=== PATIENT | male | born 1990 | race Caucasian/White ===

== ENCOUNTER 2019-11-28 15:43 | Emergency (ER) | payer OTHER, SELFPAY ==
[2019-11-28 16:06] VITALS: BP 133/84; PULSE 78; RESP 20; TEMP 36.6; O2SAT 100
--- NOTE | 2019-11-28 16:16 | ED.GENADULT ---
HPI - General Adult General Chief complaint: Extremity Injury, Lower Stated complaint: l/foot injury Time Seen by Provider: 11/28/19 16:16 Source: patient Mode of arrival: ambulatory Limitations: no limitations History of Present Illness HPI narrative: 29-year-old male patient presents to the [facility] with complaints of left great toe wound and pain. Patient states he has had the symptoms for approximately 2 weeks now. Patient states that he has been trying to soak his toe and on does show an warm water. Patient states that he noticed some yellow discharge coming from it yesterday. Patient states it seems to be getting worse but denies any fevers, streaking up the foot or leg. Denies being a diabetic. Related Data Allergies Allergy/AdvReac Type Severity Reaction Status Date / Time No Known Allergies Allergy Verified 11/28/19 15:56 Review of Systems Review of Systems: Narrative: CONSTITUTIONAL: Denies fever, chills, or sweats. EYES: Denies visual changes, redness, or discharge. ENT: Denies rhinorrhea, congestion, sore throat, or otalgia. CARDIOVASCULAR: Denies chest pain, palpitations, or edema. RESPIRATORY: Denies cough or dyspnea. GASTROINTESTINAL: Denies abdominal pain, nausea, vomiting, or diarrhea. GENITOURINARY: Denies dysuria or hematuria. SKIN: Denies rash or itching. MUSCULOSKELETAL: Denies back pain, joint pain, or myalgia. Positive left great toe redness and swelling x2 weeks. NEUROLOGIC: Denies headache, numbness, or weakness. PSYCHIATRIC: Denies anxiety or depression. PMFSH Social History Social History Gender identity (if verbalized by the patient): Male Comments At the time of my signature I agree with nursing past medical history, surgical, social, and family history. There is no relevant family history pertinent to the presenting complaint. Exam Narrative: Exam Narrative: GENERAL: Well-appearing, well-nourished, and in no acute distress. HEAD: Normocephalic, atraumatic. EYES: PERRLA and EOMI. ENT: Nares clear, no rhinorrhea or epistaxis. Mucous membranes moist. NECK: Supple. No lymphadenopathy CHEST: Clear to auscultation. No respiratory distress. HEART: Regular rate and rhythm. No murmur heard. Normal peripheral pulses. ABDOMEN: Soft, nontender, nondistended, normal active bowel sounds. EXTREMITIES: Normal range of motion. No edema. Patient has redness and swelling noted to the distal portion of the left great toe. Most of the swelling is noted on the medial side of the distal portion of the left great toe. There is some yellow discharge coming from the medial side of the toenail. There is some warmth present and tenderness. No streaking noted up the foot or ankle. SKIN: Warm, dry, no rash. NEURO: No focal deficits. Alert and oriented x3. Course Vital Signs Vital signs: Vital Signs Temperature 36.6 C 11/28/19 16:06 Pulse Rate 78 11/28/19 16:06 Respiratory Rate 20 11/28/19 16:06 Blood Pressure 133/84 11/28/19 16:06 Pulse Oximetry 100 11/28/19 16:06 Temperature 36.6 C 11/28/19 16:06 Pulse Rate 78 11/28/19 16:06 Respiratory Rate 20 11/28/19 16:06 Blood Pressure 133/84 11/28/19 16:06 Pulse Oximetry 100 11/28/19 16:06 Vital signs reviewed. The patient has been informed that they may have pre-hypertension or Hypertension based on a BP reading in the department. I recommend that the patient call the primary care provider listed on their discharge instructions or a physician of their choice this week to arrange follow up for further evaluation of possible pre-hypertension or Hypertension Procedures Other Procedure Procedure 1: Other Procedure: Clean the left great toe area with normal saline and Shur-Clens. Antibiotic ointment was applied and covered with Band-Aid. Patient tolerated procedure well. Medical Decision Making Differential Diagnosis Differential Diagnosis: Differential diagnosis: Fo
== END 2019-11-28 16:33 | disposition home or self-care (01) ==
PROVIDERS: Emergency Provider Nurse Practitioner Family
DX: L03.032 Cellulitis of left toe (principal)
CPT/HCPCS: 99213; G0463